=== PATIENT | female | born 1985 | race Caucasian/White ===

== ENCOUNTER 2017-01-01 22:16 | Emergency (ER) | payer SELFPAY ==
[2017-01-01 23:09] LABS: BASOPHILS 0.1 % (0-2); EOSINOPHILS 0.3 % (0-7); HEMATOCRIT 41.7 % (36.0-48.0); HEMOGLOBIN 14.1 g/dL (12-16); IMMATURE GRANULOCYTES 0.3 % (0-5); LYMPHOCYTES 10.2 % (15-50); MCH 29.6 pg (26.0-34.0); MCHC 33.8 g/dL (31.0-37.0); MCV 87.4 fL (80.0-100.0); MEAN PLATELET VOLUME 10.4 fL (7.4-10.4); MONOCYTES 10.1 % (2-11); PLATELET COUNT 267 10x3/uL (130-400); RBC 4.77 10x6/uL (4.00-5.40); RDW 13.8 % (11.5-14.5); WBC 11.5 10x3/uL (4.8-10.8)
[2017-01-01 23:10] LABS: APPEARANCE HAZY (CLEAR); BILIRUBIN NEGATIVE (NEGATIVE); COLOR YELLOW (YELLOW); GLUCOSE NEGATIVE (NEGATIVE); KETONE SMALL mg/dL (NEGATIVE); LEUKOCYTE ESTERASE NEGATIVE (NEGATIVE); NITRITE NEGATIVE (NEGATIVE); PROTEIN NEGATIVE (NEGATIVE); SPECIFIC GRAVITY 1.015 (1.005-1.020); UROBILINOGEN NORMAL (NORMAL)
[2017-01-01 23:20] LABS: ALBUMIN 2.8 g/dL (3.4-5.0); ANION GAP 15.4 mmol/L (8-16); BILIRUBIN - TOTAL 0.24 mg/dL (0.2-1.3); CALCIUM 8.5 mg/dL (8.5-10.1); CARBON DIOXIDE 22.1 mmol/L (21.0-32.0); CREATININE - SERUM 1.5 mg/dL (0.6-1.3); POTASSIUM - SERUM 3.5 mmol/L (3.5-5.1); PROTEIN - SERUM 6.1 g/dL (6.4-8.2)
[2017-01-01 23:21] LABS: MAGNESIUM - SERUM 1.9 mg/dL (1.8-2.4)
== END 2017-01-02 00:04 | disposition home or self-care (01) ==
LOC: D.ER 22:16
PROVIDERS: Emergency Medicine
DX: R53.1 Weakness (principal); R11.10 Vomiting, unspecified; S37.009A Unspecified injury of unspecified kidney, initial encounter; F17.200 Nicotine dependence, unspecified, uncomplicated

== ENCOUNTER 2017-01-05 21:56 | Emergency (ER) | payer SELFPAY ==
[2017-01-05 23:00] LABS: BASOPHILS 0.3 % (0-2); EOSINOPHILS 0.6 % (0-7); HEMATOCRIT 36.3 % (36.0-48.0); HEMOGLOBIN 12.2 g/dL (12-16); IMMATURE GRANULOCYTES 0.3 % (0-5); LYMPHOCYTES 16.6 % (15-50); MCH 29.7 pg (26.0-34.0); MCHC 33.6 g/dL (31.0-37.0); MCV 88.3 fL (80.0-100.0); MEAN PLATELET VOLUME 10.3 fL (7.4-10.4); MONOCYTES 7.6 % (2-11); NEUTROPHILS 74.6 % (40-80); PLATELET COUNT 291 10x3/uL (130-400); RBC 4.11 10x6/uL (4.00-5.40); RDW 13.8 % (11.5-14.5); WBC 9.8 10x3/uL (4.8-10.8)
[2017-01-05 23:11] LABS: HCG SERUM NEGATIVE (NEGATIVE)
[2017-01-05 23:17] LABS: ALBUMIN 2.6 g/dL (3.4-5.0); ALKALINE PHOSPHATASE 80 U/L (46-116); ALT (SGPT) 23 U/L (10-68); BILIRUBIN - TOTAL 0.24 mg/dL (0.2-1.3); CALC OSMOLALITY 280 mosm/kg (275-300); CALCIUM 7.9 mg/dL (8.5-10.1); CARBON DIOXIDE 25.4 mmol/L (21.0-32.0); CHLORIDE - SERUM 107 mmol/L (98-107); CREATININE - SERUM 0.8 mg/dL (0.6-1.3); GLUCOSE 119 mg/dL (74-106); PROTEIN - SERUM 5.9 g/dL (6.4-8.2); SODIUM 142 mmol/L (136-145); UREA NITROGEN 4 mg/dL (7-18); eGFR NON AFRICAN AMERICAN 89 mL/min (90-120)
[2017-01-05 23:24] LABS: POTASSIUM - SERUM 2.8 mmol/L (3.5-5.1)
[2017-01-06 00:21] LABS: APPEARANCE CLEAR (CLEAR); COLOR YELLOW (YELLOW)
[2017-01-06 00:22] LABS: BILIRUBIN NEGATIVE (NEGATIVE); GLUCOSE NEGATIVE (NEGATIVE); KETONE NEGATIVE (NEGATIVE); LEUKOCYTE ESTERASE TRACE (NEGATIVE); NITRITE NEGATIVE (NEGATIVE); PROTEIN NEGATIVE (NEGATIVE); UROBILINOGEN NORMAL (NORMAL)
[2017-01-06 00:23] LABS: BACTERIA MODERATE /hpf (NONE SEEN); EPITHELIAL CELLS 0-5 /hpf (0-5); MUCUS <1+ /lpf (NONE SEEN); RED CELLS - URINE 0-5 /hpf (0-5); WHITE CELLS - URINE 0-5 /hpf (0-5)
== END 2017-01-06 02:33 | disposition home or self-care (01) ==
LOC: D.ER 21:56
PROVIDERS: Family Medicine
DX: E87.6 Hypokalemia (principal); N39.0 Urinary tract infection, site not specified

== ENCOUNTER 2017-07-06 21:43 | Emergency (ER) | payer SELFPAY ==
[2017-07-06 22:30] LABS: BASOPHILS 0.4 % (0-2); EOSINOPHILS 2.5 % (0-7); HEMATOCRIT 32.2 % (36.0-48.0); HEMOGLOBIN 10.7 g/dL (12-16); IMMATURE GRANULOCYTES 0.1 % (0-5); LYMPHOCYTES 17.9 % (15-50); MCHC 33.2 g/dL (31.0-37.0); MCV 87.3 fL (80.0-100.0); MEAN PLATELET VOLUME 9.6 fL (7.4-10.4); NEUTROPHILS 70.1 % (40-80); PLATELET COUNT 317 10x3/uL (130-400); RBC 3.69 10x6/uL (4.00-5.40); RDW 13.5 % (11.5-14.5); WBC 8.5 10x3/uL (4.8-10.8)
[2017-07-06 22:45] LABS: ALBUMIN 2.8 g/dL (3.4-5.0); ALKALINE PHOSPHATASE 64 U/L (46-116); ALT (SGPT) 19 U/L (10-68); BILIRUBIN - TOTAL 0.31 mg/dL (0.2-1.3); CALC OSMOLALITY 272 mosm/kg (275-300); CALCIUM 8.6 mg/dL (8.5-10.1); CHLORIDE - SERUM 103 mmol/L (98-107); CREATININE - SERUM 0.7 mg/dL (0.6-1.3); GLUCOSE 85 mg/dL (74-106); POTASSIUM - SERUM 3.4 mmol/L (3.5-5.1); PROTEIN - SERUM 6.3 g/dL (6.4-8.2); SODIUM 138 mmol/L (136-145); UREA NITROGEN 7 mg/dL (7-18); eGFR NON AFRICAN AMERICAN > 90 mL/min (90-120)
== END 2017-07-06 23:05 | disposition home or self-care (01) ==
LOC: D.ER 21:43
PROVIDERS: Physician Assistant Medical
DX: J06.9 Acute upper respiratory infection, unspecified (principal); F17.200 Nicotine dependence, unspecified, uncomplicated

== ENCOUNTER 2017-10-29 07:40 | Emergency (ER) | payer SELFPAY | END 2017-10-29 08:30 | disposition home or self-care (01) | LOC: D.ER 07:40 | DX: R51 Headache (principal); M54.2 Cervicalgia ==

== ENCOUNTER 2018-08-08 07:17 | Emergency (ER) | payer MEDICAID ==
[~2018-08-08] VITALS: Ht 160 cm; Wt 113.6 kg
[2018-08-08 07:27] VITALS: Ht 160 cm; Wt 113.6 kg
[2018-08-08] MEDS ORDERED: HYDROCODON-ACE1 EAC2 PO (08:35)
[2018-08-08 09:09] VITALS: BP 102/53
== END 2018-08-08 09:09 | disposition home or self-care (01) ==
LOC: D.ER 07:17
DX: S30.0XXA Contusion of lower back and pelvis, initial encounter (principal); W10.9XXA Fall (on) (from) unspecified stairs and steps, initial encounter; Y93.89 Activity, other specified; Y92.89 Other specified places as the place of occurrence of the external cause

== ENCOUNTER 2018-12-07 18:22 | Emergency (ER) | payer MEDICAID ==
[~2018-12-07] VITALS: Ht 160 cm; Wt 113.6 kg
[~2018-12-07 18:22] MED LIST: HYDROCODON-ACE1 EAC2 PO
[2018-12-07 18:27] VITALS: Ht 160 cm; Wt 113.6 kg
[2018-12-07] MEDS ORDERED: SULFAMETHOXAZOL1 TA3 PO (20:31)
[2018-12-07] MEDS ORDERED: KEFLEX500 MG PO (20:31)
[2018-12-07 20:43] VITALS: BP 136/74
== END 2018-12-07 20:44 | disposition home or self-care (01) ==
LOC: D.ER 18:22
DX: S80.862A Insect bite (nonvenomous), left lower leg, initial encounter (principal); W57.XXXA Bitten or stung by nonvenomous insect and other nonvenomous arthropods, initial encounter; Y93.89 Activity, other specified; Y92.89 Other specified places as the place of occurrence of the external cause; L08.89 Other specified local infections of the skin and subcutaneous tissue

== ENCOUNTER 2019-04-04 07:26 | Inpatient (IN) | payer MEDICAID ==
[~2019-04-04] VITALS: Ht 160 cm; Wt 106.6 kg
[~2019-04-04 07:26] MED LIST changes: +KEFLEX500 MG PO; +SULFAMETHOXAZOL1 TA3 PO
[2019-04-04 07:53] LABS: BASOPHILS 0.1 % (0-2); EOSINOPHILS 1.3 % (0-7); HEMATOCRIT 36.8 % (36.0-48.0); HEMOGLOBIN 12.1 g/dL (12-16); IMMATURE GRANULOCYTES 0.3 % (0-5); LYMPHOCYTES 10.4 % (15-50); MCH 29.2 pg (26.0-34.0); MCHC 32.9 g/dL (31.0-37.0); MCV 88.9 fL (80.0-100.0); MEAN PLATELET VOLUME 9.9 fL (7.4-10.4); MONOCYTES 5.4 % (2-11); NEUTROPHILS 82.5 % (40-80); PLATELET COUNT 345 10x3/uL (130-400); RBC 4.14 10x6/uL (4.00-5.40); RDW 14.4 % (11.5-14.5); WBC 13.8 10x3/uL (4.8-10.8)
[2019-04-04 08:04] LABS: APPEARANCE CLEAR (CLEAR); BILIRUBIN NEGATIVE (NEGATIVE); COLOR YELLOW (YELLOW); GLUCOSE NEGATIVE (NEGATIVE); KETONE NEGATIVE (NEGATIVE); NITRITE NEGATIVE (NEGATIVE); PROTEIN NEGATIVE (NEGATIVE); UROBILINOGEN NORMAL (NORMAL)
[2019-04-04 08:10] LABS: ALBUMIN 3.2 g/dL (3.4-5.0); ALKALINE PHOSPHATASE 79 U/L (46-116); ALT (SGPT) 16 U/L (10-68); BILIRUBIN - TOTAL 0.15 mg/dL (0.2-1.3); CALC OSMOLALITY 280 mosm/kg (275-300); CALCIUM 8.8 mg/dL (8.5-10.1); CHLORIDE - SERUM 106 mmol/L (98-107); CREATININE - SERUM 0.7 mg/dL (0.6-1.3); GLUCOSE 126 mg/dL (74-106); PROTEIN - SERUM 7.2 g/dL (6.4-8.2); SODIUM 140 mmol/L (136-145); UREA NITROGEN 12 mg/dL (7-18); eGFR NON AFRICAN AMERICAN > 90 mL/min (90-120)
[2019-04-04 08:13] LABS: AMYLASE - SERUM 37 U/L (25-115); LIPASE 105 U/L (73-393); TROPONIN-I < 0.017 ng/mL (0.000-0.060)
[2019-04-04 10:55] VITALS: BP 170/80
[2019-04-04 12:35] VITALS: BP 160/80
[2019-04-04 13:10] VITALS: BP 155/101
[2019-04-04 17:25] VITALS: BP 155/101; BMI 41.7
[2019-04-04 17:27] LABS: HCG URINE NEGATIVE (NEGATIVE)
[2019-04-04 21:13] VITALS: BP 134/75
[2019-04-05] VITALS (9 sets, daily range): BP systolic 95–126; BP diastolic 45–79; Ht 160 cm; Wt 106.6 kg
[2019-04-05 06:23] LABS: ALBUMIN 2.7 g/dL (3.4-5.0); ALKALINE PHOSPHATASE 75 U/L (46-116); AMYLASE - SERUM 25 U/L (25-115); BILIRUBIN - TOTAL 0.28 mg/dL (0.2-1.3); CALC OSMOLALITY 277 mosm/kg (275-300); CALCIUM 8.3 mg/dL (8.5-10.1); CHLORIDE - SERUM 106 mmol/L (98-107); CREATININE - SERUM 0.8 mg/dL (0.6-1.3); GLUCOSE 85 mg/dL (74-106); LIPASE 58 U/L (73-393); POTASSIUM - SERUM 3.4 mmol/L (3.5-5.1); PROTEIN - SERUM 6.4 g/dL (6.4-8.2); SODIUM 141 mmol/L (136-145); UREA NITROGEN 6 mg/dL (7-18); eGFR NON AFRICAN AMERICAN 88 mL/min (90-120)
[2019-04-05 06:24] LABS: ALT (SGPT) 30 U/L (10-68)
[2019-04-05 08:32] LABS: BASOPHILS 0.2 % (0-2); EOSINOPHILS 1.3 % (0-7); HEMATOCRIT 33.6 % (36.0-48.0); HEMOGLOBIN 10.8 g/dL (12-16); IMMATURE GRANULOCYTES 0.2 % (0-5); MCH 29.2 pg (26.0-34.0); MCHC 32.1 g/dL (31.0-37.0); MCV 90.8 fL (80.0-100.0); MEAN PLATELET VOLUME 10.2 fL (7.4-10.4); MONOCYTES 8.7 % (2-11); NEUTROPHILS 62.6 % (40-80); PLATELET COUNT 299 10x3/uL (130-400); RDW 14.7 % (11.5-14.5); WBC 8.3 10x3/uL (4.8-10.8)
[2019-04-05] MEDS ORDERED: HYDROCODON-ACE1 EAC7 PO (14:13)
--- NOTE | 2019-04-05 15:51 | MORECARE ---
CASE MANAGEMENT DISCHARGE SUMMARY PATIENT: KETTY OROPEZA UNIT: [id number] ADM DATE: 04/04/19 AGE: 33 : 87 SEX: F ROOM/BED: D.2233 AUTHOR: GURDEEP GRIMALDO PHYSICIAN: REFERRING PHYSICIAN: MANNY CHERY MD DATE OF SERVICE: 04/05/19 Discharge Plan Patient Name: KETTY OROPEZA Facility: [facility]:[place] : 1985 Planned Disposition: Home Anticipated Discharge Date: 04/05/19 Discharge Date: Expected LOS: 1 Initial Reviewer: [email or web address] Initial Review Date: 04/05/2019 Generated: 04/05/19 4:50 pm Patient Name: KETTY OROPEZA Page 95082 at 1551 All edits/amendments must be made on the electronic document DICTATION DATE: 04/05/191549 POLYGRAPH TECHNICIAN: SUNG 04/05/191549 RPT#: [id number] DC DATE: STATUS: ADM IN [facility] [address] [place] [address] END OF REPORT
--- NOTE | 2019-04-05 16:03 | MORECARE ---
CASE MANAGEMENT DISCHARGE SUMMARY PATIENT: KETTY RENO UNIT: [id number] ADM DATE: 04/04/19 AGE: 33 : 86 SEX: F ROOM/BED: D.2233 AUTHOR: DILLANDOC PHYSICIAN: REFERRING PHYSICIAN: MANNY CHERY MD DATE OF SERVICE: 04/05/19 Discharge Plan Patient Name: KETTY RENO Facility: [facility]:[place] : 1985 Planned Disposition: Home Anticipated Discharge Date: 04/05/19 Discharge Date: Expected LOS: 1 Initial Reviewer: [email or web address] Initial Review Date: 04/05/2019 Generated: 04/05/19 5:02 pm Comments DCP- Discharge Planning Updated by [email or web address]: Maya Martins on 04/05/19 2:[address] Patient Name: KETTY RENO Admission Status: ER Accout number: [id number] Admission Date: 04-04-2019 : 1985 Admission Diagnosis: Attending: MANNY CHERY Current LOS: 1 Anticipated DC Date: 04-05-2019 Planned Disposition: Home Primary Insurance: MEDICAID [place] Discharge Planning Comments: CM met with patient to complete initial dc planning assessment. CM educated patient on the CM role and verbal consent given by patient to complete assessment. Patient lives at home with her aunt. At discharge patient states she will be going to stay with her mom for about a week and feels this is a safe discharge. States her mom will take her home. CM discussed availability of home health, rehab services, and medical equipment. Patient denied known discharge needs at this time. CM will continue to follow and will assist as needed with dc plans/needs. Comb Tender: Maya Martins DCPIA - Discharge Planning Initial Assessment Updated by [email or web address]: Maya Martins on 04/05/19 3:50 pm * Is the patient Alert and Oriented? Yes * How many steps to enter\exit or inside your home? 0/0 * PCP Dr. Rausch * Pharmacy [facility] on [address] * Preadmission Environment Home with Family * ADLs Independent * Equipment None * List name and contact numbers for known caregivers / representatives who currently or will assist patient after discharge: Telly Reno - mother - [phone] * Verbal permission to speak to the caregivers and representatives has been obtained from the patient. Yes * Community resources currently utilized None * Additional services required to return to the preadmission environment? No * Can the patient safely return to the preadmission environment? Yes * Has this patient been hospitalized within the prior 30 days at any hospital? No Last DP export: 04/05/19 2:51 Patient Name: KETTY RENO Page 41832 at 1603 All edits/amendments must be made on the electronic document DICTATION DATE: 04/05/191601 FEATHERER: SUNG 04/05/191601 RPT#: [id number] [place] DATE: STATUS: ADM IN [facility] [address] [place] [address] END OF REPORT
[2019-04-06 01:26] VITALS: BP 125/65
[2019-04-06 04:41] VITALS: BP 134/60
[2019-04-06 06:33] LABS: BASOPHILS 0.1 % (0-2); EOSINOPHILS 0 % (0-7); HEMOGLOBIN 10.3 g/dL (12-16); IMMATURE GRANULOCYTES 0.2 % (0-5); LYMPHOCYTES 7.6 % (15-50); MCH 29.2 pg (26.0-34.0); MCHC 32.2 g/dL (31.0-37.0); MCV 90.7 fL (80.0-100.0); MEAN PLATELET VOLUME 10.6 fL (7.4-10.4); MONOCYTES 7.6 % (2-11); NEUTROPHILS 84.5 % (40-80); PLATELET COUNT 309 10x3/uL (130-400); RBC 3.53 10x6/uL (4.00-5.40); RDW 14.8 % (11.5-14.5)
[2019-04-06 06:34] LABS: WBC 14.4 10x3/uL (4.8-10.8)
[2019-04-06 07:14] LABS: ALBUMIN 2.8 g/dL (3.4-5.0); ALKALINE PHOSPHATASE 70 U/L (46-116); CALC OSMOLALITY 277 mosm/kg (275-300); CALCIUM 8.4 mg/dL (8.5-10.1); CARBON DIOXIDE 25.7 mmol/L (21.0-32.0); CHLORIDE - SERUM 105 mmol/L (98-107); CREATININE - SERUM 0.9 mg/dL (0.6-1.3); GLUCOSE 127 mg/dL (74-106); PROTEIN - SERUM 6.4 g/dL (6.4-8.2); SODIUM 139 mmol/L (136-145); UREA NITROGEN 7 mg/dL (7-18); eGFR NON AFRICAN AMERICAN 77 mL/min (90-120)
[2019-04-06 07:21] LABS: ALT (SGPT) 83 U/L (10-68); POTASSIUM - SERUM 4.2 mmol/L (3.5-5.1)
[2019-04-06 08:43] VITALS: BP 127/68
--- NOTE | 2019-04-06 11:44 | MORECARE ---
CASE MANAGEMENT DISCHARGE SUMMARY PATIENT: KETTY RENO UNIT: [id number] ADM DATE: 04/04/19 AGE: 33 : 86 SEX: F ROOM/BED: D.2233 AUTHOR: GURDEEP GRIMALDO PHYSICIAN: REFERRING PHYSICIAN: MANNY CHERY MD DATE OF SERVICE: 04/06/19 Discharge Plan Patient Name: KETTY RENO Facility: [facility]:[place] : 1985 Planned Disposition: Home Anticipated Discharge Date: 04/05/19 Discharge Date: Expected LOS: 1 Initial Reviewer: [email or web address] Initial Review Date: 04/05/2019 Generated: 04/06/19 12:43 pm Comments DCP- Discharge Planning Updated by [email or web address]: Maya Martins on 04/06/19 10:[address] Patient Name: KETTY RNEO Encounter No: [id number] : 1985 Primary Insurance: MEDICAID [place] Anticipated DC Date: 04-05-2019 Planned Disposition: Home External Planned Provider: : DCP follow-up note: Patient and family in agreement with discharge plan. No changes to plan. Case management will follow and assist as needed. Maya Martins DCP- Discharge Planning Updated by [email or web address]: Maya Martins on 04/05/19 2:[address] Patient Name: KETTY RENO Admission Status: ER Accout number: [id number] Admission Date: 04-04-2019 : 1985 Admission Diagnosis: Attending: MANNY CHERY Current LOS: 1 Anticipated DC Date: 04-05-2019 Planned Disposition: Home Primary Insurance: MEDICAID [place] Discharge Planning Comments: CM met with patient to complete initial dc planning assessment. CM educated patient on the CM role and verbal consent given by patient to complete assessment. Patient lives at home with her aunt. At discharge patient states she will be going to stay with her mom for about a week and feels this is a safe discharge. States her mom will take her home. CM discussed availability of home health, rehab services, and medical equipment. Patient denied known discharge needs at this time. CM will continue to follow and will assist as needed with dc plans/needs. Geospatial Analyst: Maya Martins DCPIA - Discharge Planning Initial Assessment Updated by [email or web address]: Maya Martins on 04/05/19 3:50 pm * Is the patient Alert and Oriented? Yes * How many steps to enter\exit or inside your home? 0/0 * PCP Dr. Rausch * Pharmacy [facility] on [address] * Preadmission Environment Home with Family * ADLs Independent * Equipment None * List name and contact numbers for known caregivers / representatives who currently or will assist patient after discharge: Telly Reno - mother - [phone] * Verbal permission to speak to the caregivers and representatives has been obtained from the patient. Yes * Community resources currently utilized None * Additional services required to return to the preadmission environment? No * Can the patient safely return to the preadmission environment? Yes * Has this patient been hospitalized within the prior 30 days at any hospital? No Last DP export: 04/05/19 3:03 Patient Name: KETTY RENO Page 41750 at 1144 All edits/amendments must be made on the electronic document DICTATION DATE: 04/06/19 1143 SKI PATROL: SUNG 04/06/19 1143 RPT#: [id number] DC DATE: STATUS: ADM IN [facility] [address] [place] [address] END OF REPORT
--- NOTE | 2019-04-06 16:50 | MORECARE ---
CASE MANAGEMENT DISCHARGE SUMMARY PATIENT: KETTY RENO UNIT: [id number] ADM DATE: 04/04/19 AGE: 33 : 87 SEX: F ROOM/BED: D.2233 AUTHOR: GURDEEP GRIMALDO PHYSICIAN: REFERRING PHYSICIAN: MANNY CHERY MD DATE OF SERVICE: 04/06/19 Discharge Plan Patient Name: KETTY RENO Facility: [facility]:[place] : 1985 Planned Disposition: Home Anticipated Discharge Date: 04/05/19 Discharge Date: 04/06/2019 Expected LOS: 1 Initial Reviewer: [email or web address] Initial Review Date: 04/05/2019 Generated: 04/06/19 5:49 pm Comments DCP- Discharge Planning Updated by [email or web address]: Maya Martins on 04/06/19 10:[address] Patient Name: KETTY RENO Encounter No: [id number] : 1985 Primary Insurance: MEDICAID [place] Anticipated DC Date: 04-05-2019 Planned Disposition: Home External Planned Provider: : DCP follow-up note: Patient and family in agreement with discharge plan. No changes to plan. Case management will follow and assist as needed. Maya Martins DCP- Discharge Planning Updated by [email or web address]: Maya Martins on 04/05/19 2:[address] Patient Name: KETTY RENO Admission Status: ER Accout number: [id number] Admission Date: 04-04-2019 : 1985 Admission Diagnosis: Attending: MANNY CHERY Current LOS: 1 Anticipated DC Date: 04-05-2019 Planned Disposition: Home Primary Insurance: MEDICAID [place] Discharge Planning Comments: CM met with patient to complete initial dc planning assessment. CM educated patient on the CM role and verbal consent given by patient to complete assessment. Patient lives at home with her aunt. At discharge patient states she will be going to stay with her mom for about a week and feels this is a safe discharge. States her mom will take her home. CM discussed availability of home health, rehab services, and medical equipment. Patient denied known discharge needs at this time. CM will continue to follow and will assist as needed with dc plans/needs. Life Enrichment Specialist: Maya Martins DCPIA - Discharge Planning Initial Assessment Updated by [email or web address]: Maya Eliezer on 04/05/19 3:50 pm * Is the patient Alert and Oriented? Yes * How many steps to enter\exit or inside your home? 0/0 * PCP Dr. Rausch * Pharmacy [facility] on [address] * Preadmission Environment Home with Family * ADLs Independent * Equipment None * List name and contact numbers for known caregivers / representatives who currently or will assist patient after discharge: Telly Reno - mother - [phone] * Verbal permission to speak to the caregivers and representatives has been obtained from the patient. Yes * Community resources currently utilized None * Additional services required to return to the preadmission environment? No * Can the patient safely return to the preadmission environment? Yes * Has this patient been hospitalized within the prior 30 days at any hospital? No Last DP export: 04/06/19 10:44 Patient Name: KETTY RENO Page 93891 at 1650 All edits/amendments must be made on the electronic document DICTATION DATE: 04/06/191648 EQUIPMENT TECHNICIAN: SUNG 04/06/191648 RPT#: [id number] DC DATE:04/06/19 STATUS: DIS IN [facility] [address] [place] [address] END OF REPORT
== END 2019-04-06 12:59 | disposition home or self-care (01) | DRG 418 ==
LOC: D.ER 07:26 → D.MS 10:59
PROVIDERS: Family Medicine; Surgery; ADMIT Emergency Medicine; ATTEND Emergency Medicine
PROC: BF101ZZ Fluoroscopy of Bile Ducts using Low Osmolar Contrast (ICD-10-PCS; 2019-04-05)
PROC: 0FT44ZZ Resection of Gallbladder, Percutaneous Endoscopic Approach (ICD-10-PCS; principal; 2019-04-05 15:00)
DX: K80.20 Calculus of gallbladder without cholecystitis without obstruction (principal); Z68.41 Body mass index [BMI] 40.0-44.9, adult; R19.7 Diarrhea, unspecified; E86.0 Dehydration; E66.9 Obesity, unspecified; K80.00 Calculus of gallbladder with acute cholecystitis without obstruction

== ENCOUNTER 2019-04-11 06:59 | Inpatient (IN) | payer MEDICAID ==
[~2019-04-11] VITALS: Ht 160 cm; Wt 109.1 kg
[~2019-04-11 06:59] MED LIST changes: +HYDROCODON-ACE1 EAC7 PO
[2019-04-11 07:37] LABS: CALC OSMOLALITY 271 mosm/kg (275-300); CALCIUM 9.3 mg/dL (8.5-10.1); CARBON DIOXIDE 24.6 mmol/L (21.0-32.0); CHLORIDE - SERUM 100 mmol/L (98-107); CREATININE - SERUM 0.6 mg/dL (0.6-1.3); GLUCOSE 149 mg/dL (74-106); POTASSIUM - SERUM 3.7 mmol/L (3.5-5.1); SODIUM 135 mmol/L (136-145); UREA NITROGEN 10 mg/dL (7-18); eGFR NON AFRICAN AMERICAN > 90 mL/min (90-120)
[2019-04-11 07:40] LABS: ALT (SGPT) 43 U/L (10-68)
[2019-04-11 07:44] LABS: ALBUMIN 3.8 g/dL (3.4-5.0); ALKALINE PHOSPHATASE 94 U/L (46-116); ALT (SGPT) 44 U/L (10-68); BILIRUBIN - TOTAL 0.56 mg/dL (0.2-1.3); CHOL - HDL RATIO 3.8 ratio (2.3-4.1); CHOLESTEROL, TOTAL 209 mg/dL (0-200); HDL CHOLESTEROL 55 mg/dL (32-96); LDL CHOLESTEROL 132 mg/dL (0-100); LDL-HDL RATIO 2.4 ratio (1.5-3.5); PROTEIN - SERUM 7.8 g/dL (6.4-8.2); TRIGLYCERIDE 112 mg/dL (30-200)
[2019-04-11 07:48] LABS: HCG URINE NEGATIVE (NEGATIVE); HEMATOCRIT 36.8 % (36.0-48.0); HEMOGLOBIN 12.4 g/dL (12-16); MCH 29.8 pg (26.0-34.0); MCHC 33.7 g/dL (31.0-37.0); MCV 88.5 fL (80.0-100.0); MEAN PLATELET VOLUME 10.1 fL (7.4-10.4); PLATELET COUNT 411 10x3/uL (130-400); RBC 4.16 10x6/uL (4.00-5.40); RDW 14.2 % (11.5-14.5); WBC 21.1 10x3/uL (4.8-10.8)
[2019-04-11 07:56] LABS: APPEARANCE HAZY (CLEAR); COLOR YELLOW (YELLOW); NITRITE NEGATIVE (NEGATIVE); PROTEIN NEGATIVE (NEGATIVE); SPECIFIC GRAVITY 1.005 (1.005-1.020)
[2019-04-11 07:57] LABS: BACTERIA MANY /hpf (NEGATIVE); BILIRUBIN NEGATIVE (NEGATIVE); EPITHELIAL CELLS 0-5 /hpf (0-5); GLUCOSE NEGATIVE (NEGATIVE); KETONE LARGE mg/dL (NEGATIVE); MUCUS <1+ /lpf (NONE SEEN); RED CELLS - URINE 0-5 /hpf (0-5); UROBILINOGEN NORMAL (NORMAL); WHITE CELLS - URINE 0-5 /hpf (NEGATIVE)
--- NOTE | 2019-04-11 08:23 | NUR ---
PT RERORTS NAUSEA IS BETTER BUT HER ABD STILL HURTS. PT STATES IT FEELS LIKE A BIG BALL ROLLING ARAOUND HER STOMACH.
--- NOTE | 2019-04-11 08:50 | NUR ---
PT GONE TO CT
--- NOTE | 2019-04-11 09:14 | NUR ---
PT RETURNED FROM CT
[2019-04-11 10:52] VITALS: BP 148/98; BMI 42.6
--- NOTE | 2019-04-11 11:38 | NUR ---
PATIENT RECIEVED FROM ER WITH NAUSEA AND VOMITING SINCE LAST PM. ABDOMINAL ABCESS. PATIENT IS POST OP LAP KARO LAST WEEK. STERI-STRIPS ARE INTACT TO LAP SITES. ORIENTED PATIENT TO ROOM WITH CL IN REACH
[2019-04-11 12:01] LABS: LYMPHOCYTES 10 % (15-50); MONOCYTES 11 % (2-11); NEUTROPHILS 74 % (40-80); PLATELET ESTIMATE INCREASED
[2019-04-11 12:02] LABS: ROULEAUX 1+
[2019-04-11 12:34] VITALS: BP 140/82
[2019-04-11 14:39] LABS: APTT 33.3 SECONDS (22.8-39.4); INR 1.12 (0.85-1.17); PROTIME 13.9 SECONDS (11.6-15.0)
--- NOTE | 2019-04-11 15:42 | NUR ---
PATIENT TAKEN TO IR VIA BED FOR ABSCESS DRAIN PLACEMENT
[2019-04-11 16:58] VITALS: Ht 160 cm; Wt 109.1 kg
[2019-04-11 17:19] VITALS: BP 145/80
[2019-04-11 20:34] VITALS: BP 154/83
[2019-04-12 01:19] VITALS: BP 137/75
[2019-04-12 05:03] VITALS: BP 118/73
--- NOTE | 2019-04-12 05:29 | NUR ---
1930)REC'D WALKING ROUNDS CHGE OF SHIFT IN BED.DENIES NAUSEA AT PRESENT TIME STATES PASSING LOT OF FLATUS WILL CONTINUE TO MONITOR FOR ANY CHGES AND FOLLOW CURRENT PLAN OF CARE.
[2019-04-12 06:30] LABS: BASOPHILS 0.1 % (0-2); EOSINOPHILS 0.2 % (0-7); HEMATOCRIT 32.9 % (36.0-48.0); HEMOGLOBIN 10.9 g/dL (12-16); IMMATURE GRANULOCYTES 0.4 % (0-5); LYMPHOCYTES 8.5 % (15-50); MCH 29.4 pg (26.0-34.0); MCHC 33.1 g/dL (31.0-37.0); MCV 88.7 fL (80.0-100.0); MEAN PLATELET VOLUME 10.1 fL (7.4-10.4); MONOCYTES 9.6 % (2-11); NEUTROPHILS 81.2 % (40-80); PLATELET COUNT 355 10x3/uL (130-400); RBC 3.71 10x6/uL (4.00-5.40); RDW 14.4 % (11.5-14.5); WBC 16.4 10x3/uL (4.8-10.8)
--- NOTE | 2019-04-12 06:38 | NUR ---
I have reviewed this patient and I concur with the Shift Assessment completed by the Licensed Practical Nurse today this shift.
[2019-04-12 06:44] LABS: CALC OSMOLALITY 271 mosm/kg (275-300); CALCIUM 8.7 mg/dL (8.5-10.1); CARBON DIOXIDE 26.8 mmol/L (21.0-32.0); CHLORIDE - SERUM 101 mmol/L (98-107); CREATININE - SERUM 0.7 mg/dL (0.6-1.3); GLUCOSE 110 mg/dL (74-106); POTASSIUM - SERUM 3.3 mmol/L (3.5-5.1); SODIUM 136 mmol/L (136-145); UREA NITROGEN 9 mg/dL (7-18); eGFR NON AFRICAN AMERICAN > 90 mL/min (90-120)
--- NOTE | 2019-04-12 07:00 | NUR ---
PATIENT RECIEVED FROM PREVIOUS SHIFT RESTING IN BED, REPORTS NAUSEA RETURNING DURING THE NIGHT. ENCOURAGED PATIENT TO ONLY TAKE ICE CHIPS CLEAR LIQUIDS UNTIL NAUSEA IS IMPROVED.
[2019-04-12 09:21] VITALS: BP 130/63
[2019-04-12 12:40] VITALS: BP 115/69
--- NOTE | 2019-04-12 15:07 | NUR ---
PATIENT REQUEST MORPHINE FOR ABD PAIN OF 8 AND NAUSEA MEDICAION, NO VOMITING AT THIS TIME, ONLY NAUSEA
[2019-04-12 16:56] VITALS: BP 141/82
[2019-04-12 20:39] VITALS: BP 127/72
--- NOTE | 2019-04-12 23:21 | NUR ---
PATIENT IS ALERT AND ORENTED X4. ABLE TO VOICE NEEDS AND WANTS TO STAFF. CALL LIGHT AND WATER IN REACH. iv TO RIGHT AC WITH NS AT 75, PATIENT WITH NO REDNESS AT SITE. dRESSING TO ABD MIDLINE CDI LAP SITES WITH NO DRANAGE NOTED. BED LOW.
[2019-04-13 01:22] VITALS: BP 130/71
[2019-04-13 05:03] VITALS: BP 121/70
--- NOTE | 2019-04-13 07:41 | NUR ---
PT IS RESTING IN BED WITH EYES CLOSED. RESPIRATIONS ARE EVEN AND UNLABORED. PT REPORTS NAUSEA AND COUGH. WILL ADDRESS NAUSEA. SEE EMAR. PT IS AAO X 4. PT REPORTS PAIN 8/10 TO ABDOMINAL AREA. WILL ADDRESS. SEE EMAR. BS ACITVE X 4. PT REPORTS PASSING GAS BUT DENIES BM. DRESSING TO ABDOMEN IS CDI. BED IS IN THE LOWEST POSITION. CALL LIGHT AND BEDSIDE TABLE ARE WITHIN REACH. SIDE RAILS X 2. PT DENIES FURTHER NEEDS. WILL CONT TO MONITOR.
[2019-04-13 08:39] LABS: CALC OSMOLALITY 272 mosm/kg (275-300); CALCIUM 8.4 mg/dL (8.5-10.1); CARBON DIOXIDE 27.3 mmol/L (21.0-32.0); CHLORIDE - SERUM 104 mmol/L (98-107); CREATININE - SERUM 0.6 mg/dL (0.6-1.3); GLUCOSE 93 mg/dL (74-106); POTASSIUM - SERUM 3.5 mmol/L (3.5-5.1); SODIUM 137 mmol/L (136-145); UREA NITROGEN 9 mg/dL (7-18); eGFR NON AFRICAN AMERICAN > 90 mL/min (90-120)
[2019-04-13 08:44] LABS: BASOPHILS 0.2 % (0-2); EOSINOPHILS 1.5 % (0-7); HEMATOCRIT 28.2 % (36.0-48.0); HEMOGLOBIN 9.2 g/dL (12-16); IMMATURE GRANULOCYTES 0.2 % (0-5); MCH 29.1 pg (26.0-34.0); MCHC 32.6 g/dL (31.0-37.0); MCV 89.2 fL (80.0-100.0); MEAN PLATELET VOLUME 9.9 fL (7.4-10.4); MONOCYTES 9.6 % (2-11); NEUTROPHILS 78.5 % (40-80); PLATELET COUNT 324 10x3/uL (130-400); RBC 3.16 10x6/uL (4.00-5.40); RDW 14.3 % (11.5-14.5); WBC 12.3 10x3/uL (4.8-10.8)
[2019-04-13 09:21] VITALS: BP 120/69
[2019-04-13] MEDS ORDERED: PHENERGAN25 M1 PO (09:37)
[2019-04-13] MEDS ORDERED: LEVOFLOXACIN500 MG PO (09:39)
--- NOTE | 2019-04-13 11:08 | MORECARE ---
CASE MANAGEMENT DISCHARGE SUMMARY PATIENT: KETTY OROPEZA UNIT: [id number] ADM DATE: 04/11/19 AGE: 33 : [birth year] SEX: F ROOM/BED: D.2238 AUTHOR: GURDEEP GRIMALDO PHYSICIAN: REFERRING PHYSICIAN: FÉLIX JACKSON MD DATE OF SERVICE: 04/13/19 Discharge Plan Patient Name: KETTY OROPEZA [facility] [facility] 1985 Planned Disposition: Home Anticipated Discharge Date: 04/13/19 Discharge Date: Expected LOS: 2 Initial Reviewer: [email or web address] Initial Review Date: 04/13/2019 Generated: 04/13/19 12:08 pm Patient Name: KETTY OROPEZA Page 42921 at 1108 All edits/amendments must be made on the electronic document DICTATION DATE: 04/13/191107 DIGESTER OPERATOR: SUNG 04/13/191107 RPT#: [id number] DC DATE: STATUS: ADM IN [facility] [address] [place] [address] END OF REPORT
--- NOTE | 2019-04-13 11:17 | MORECARE ---
CASE MANAGEMENT DISCHARGE SUMMARY PATIENT: KETTY RENO UNIT: [id number] ADM DATE: 04/11/19 AGE: 33 : [birth year] SEX: F ROOM/BED: D.2238 AUTHOR: DILLAN,DOC PHYSICIAN: REFERRING PHYSICIAN: FÉLIX JACKSON MD DATE OF SERVICE: 04/13/19 Discharge Plan Patient Name: KETTY RENO Facility: [facility]:[place] : 1985 Planned Disposition: Home Anticipated Discharge Date: 04/13/19 Discharge Date: Expected LOS: 2 Initial Reviewer: [email or web address] Initial Review Date: 04/13/2019 Generated: 04/13/19 12:17 pm Comments DCP- Discharge Planning Updated by [email or web address]: Maya Martins on 04/13/19 10:[address] Patient Name: KETTY RENO Admission Status: ER Accout number: [id number] Admission Date: 04-11-2019 : 1985 Admission Diagnosis: Attending: FÉLIX JACKSON Current LOS: 2 Anticipated DC Date: 04-13-2019 Planned Disposition: Home Primary Insurance: MEDICAID [place] Discharge Planning Comments: CM met with patient to complete initial dc planning assessment. CM educated patient on the CM role and verbal consent given by patient to complete assessment. Patient lives at home with her mother. At discharge patient plans to return and feels this is a safe discharge. CM discussed availability of home health, rehab services, and medical equipment. Patient denied known discharge needs at this time. Discharging home today, states her mother will pick her up after work at 2. CM will continue to follow and will assist as needed with dc plans/needs. Sales Operations Manager: Maya Martins DCPIA - Discharge Planning Initial Assessment Updated by [email or web address]: Maya Martins on 04/13/19 11:09 am * Is the patient Alert and Oriented? Yes * How many steps to enter\exit or inside your home? 0/0 * PCP Dr. Rausch * Pharmacy [facility] on [address] * Preadmission Environment Home with Family * ADLs Independent * Equipment None * List name and contact numbers for known caregivers / representatives who currently or will assist patient after discharge: Telly Reno - mother - [phone] * Verbal permission to speak to the caregivers and representatives has been obtained from the patient. Yes * Community resources currently utilized None * Additional services required to return to the preadmission environment? No * Can the patient safely return to the preadmission environment? Yes * Has this patient been hospitalized within the prior 30 days at any hospital? Yes Last DP export: 04/13/19 10:08 Patient Name: KETTY RENO Page 70392 at 1117 All edits/amendments must be made on the electronic document DICTATION DATE: 04/13/191116 MEDICAL RECORDS SECRETARY: SUNG 04/13/191116 RPT#: [id number] [place] DATE: STATUS: ADM IN [facility] [address] [place] [address] END OF REPORT
--- NOTE | 2019-04-13 13:16 | NUR ---
ALL DISCHARGE PAPERS COVERED. ALL QUESTIONS ANSWERED. ALL DISCHARGE PAPERS SIGNED. PT DENIES FURTHER QUESTIONS/CONCERNS AT THIS TIME. PT TO NOTIFY NURSE WHEN TRANSPORTATION HAS ARRIVED.
--- NOTE | 2019-04-13 13:59 | NUR ---
PIV REMOVED WITH CATHETER TIP INTACT. DRESSING APPLIED. PT DENIES FURTHER QUESTIONS/NEEDS/CONCERNS.
--- NOTE | 2019-04-13 14:02 | NUR ---
PT TRANSPORTED FROM ROOM VIA WHEELCHAIR ESCORTED BY HOSPITAL VOLUNTEER STAFF. PT DENIES QUESTIONS/CONCERNS/NEEDS. PT THANKS ME FOR CARE GIVEN.
--- NOTE | 2019-04-14 16:14 | MORECARE ---
CASE MANAGEMENT DISCHARGE SUMMARY PATIENT: KETTY RENO UNIT: [id number] ADM DATE: 04/11/19 AGE: 33 : 87 SEX: F ROOM/BED: D.2238 AUTHOR: DILLAN,DOC PHYSICIAN: REFERRING PHYSICIAN: FÉLIX JACKSON MD DATE OF SERVICE: 04/14/19 Discharge Plan Patient Name: KETTY RENO Facility: [facility]:[place] : 1985 Planned Disposition: Home Anticipated Discharge Date: 04/13/19 Discharge Date: 04/13/2019 Expected LOS: 2 Initial Reviewer: [email or web address] Initial Review Date: 04/13/2019 Generated: 04/14/19 5:13 pm Comments DCP- Discharge Planning Updated by [email or web address]: Maya Martins on 04/13/19 10:[address] Patient Name: KETTY RENO Admission Status: ER Accout number: [id number] Admission Date: 04-11-2019 : 1985 Admission Diagnosis: Attending: FÉLIX JACKSON Current LOS: 2 Anticipated DC Date: 04-13-2019 Planned Disposition: Home Primary Insurance: MEDICAID [place] Discharge Planning Comments: CM met with patient to complete initial dc planning assessment. CM educated patient on the CM role and verbal consent given by patient to complete assessment. Patient lives at home with her mother. At discharge patient plans to return and feels this is a safe discharge. CM discussed availability of home health, rehab services, and medical equipment. Patient denied known discharge needs at this time. Discharging home today, states her mother will pick her up after work at 2. CM will continue to follow and will assist as needed with dc plans/needs. Ground Wood Supervisor: Maya Martins DCPIA - Discharge Planning Initial Assessment Updated by [email or web address]: Maya Martins on 04/13/19 11:09 am * Is the patient Alert and Oriented? Yes * How many steps to enter\exit or inside your home? 0/0 * PCP Dr. Rausch * Pharmacy [facility] on [address] * Preadmission Environment Home with Family * ADLs Independent * Equipment None * List name and contact numbers for known caregivers / representatives who currently or will assist patient after discharge: Telly Reno - mother - [phone] * Verbal permission to speak to the caregivers and representatives has been obtained from the patient. Yes * Community resources currently utilized None * Additional services required to return to the preadmission environment? No * Can the patient safely return to the preadmission environment? Yes * Has this patient been hospitalized within the prior 30 days at any hospital? Yes Last DP export: 04/13/19 10:17 Patient Name: KETTY RENO Page 57320 at 1614 All edits/amendments must be made on the electronic document DICTATION DATE: 04/14/191612 MINERALOGY TEACHER: SUNG 04/14/191612 RPT#: [id number] DC DATE:04/13/19 STATUS: DIS IN [facility] [address] [place] [address] END OF REPORT
== END 2019-04-13 14:03 | disposition home or self-care (01) | DRG 921 ==
LOC: D.ER 06:59 → D.MS 10:12
PROVIDERS: Family Medicine; Specialist; ADMIT Surgery; ATTEND Surgery
PROC: 0J983ZZ Drainage of Abdomen Subcutaneous Tissue and Fascia, Percutaneous Approach (ICD-10-PCS; principal; 2019-04-11 16:00)
DX: K91.870 Postprocedural hematoma of a digestive system organ or structure following a digestive system procedure (principal); D72.829 Elevated white blood cell count, unspecified; R10.84 Generalized abdominal pain

== ENCOUNTER 2019-04-15 10:00 | Inpatient (IN) | payer MEDICAID ==
[~2019-04-15] VITALS: Ht 160 cm; Wt 106.8 kg
[~2019-04-15 10:00] MED LIST changes: +LEVOFLOXACIN500 MG PO; +PHENERGAN25 M1 PO
--- NOTE | 2019-04-15 10:38 | NUR ---
URINE AND BLOOD SPECIMEN SENT WITH MANAGER TELECOM AT THIS TIME.
[2019-04-15 10:49] LABS: HEMATOCRIT 33.6 % (36.0-48.0); HEMOGLOBIN 11.2 g/dL (12-16); LYMPHOCYTES 11.4 % (15-50); MCH 28.7 pg (26.0-34.0); MCHC 33.3 g/dL (31.0-37.0); MCV 86.2 fL (80.0-100.0); MEAN PLATELET VOLUME 9.2 fL (7.4-10.4); PLATELET COUNT 425 10x3/uL (130-400); RDW 13.5 % (11.5-14.5); WBC 10.6 10x3/uL (4.8-10.8)
[2019-04-15 10:51] VITALS: BP 150/72
[2019-04-15 11:00] LABS: COLOR DY (YELLOW)
[2019-04-15 11:01] LABS: APPEARANCE CLEAR (CLEAR); BACTERIA MANY /hpf (NEGATIVE); BILIRUBIN NEGATIVE (NEGATIVE); EPITHELIAL CELLS 0-5 /hpf (0-5); GLUCOSE NEGATIVE (NEGATIVE); KETONE NEGATIVE (NEGATIVE); MUCUS >1+ /lpf (NONE SEEN); NITRITE NEGATIVE (NEGATIVE); PROTEIN NEGATIVE (NEGATIVE); SPECIFIC GRAVITY 1.015 (1.005-1.020); UROBILINOGEN NORMAL (NORMAL)
[2019-04-15 11:12] LABS: ALKALINE PHOSPHATASE 164 U/L (46-116); ALT (SGPT) 38 U/L (10-68); BILIRUBIN - TOTAL 0.46 mg/dL (0.2-1.3); CALC OSMOLALITY 270 mosm/kg (275-300); CALCIUM 9.2 mg/dL (8.5-10.1); CARBON DIOXIDE 29.5 mmol/L (21.0-32.0); CHLORIDE - SERUM 98 mmol/L (98-107); CREATININE - SERUM 0.7 mg/dL (0.6-1.3); GLUCOSE 110 mg/dL (74-106); LIPASE 73 U/L (73-393); PRO BNP 346 pg/mL (0-125); PROTEIN - SERUM 8.3 g/dL (6.4-8.2); SODIUM 136 mmol/L (136-145); UREA NITROGEN 6 mg/dL (7-18); eGFR NON AFRICAN AMERICAN > 90 mL/min (90-120)
[2019-04-15 11:13] LABS: POTASSIUM - SERUM 2.9 mmol/L (3.5-5.1)
--- NOTE | 2019-04-15 11:13 | NUR ---
K+ 2.9; EDP, HUERTA INFORMED AT THIS TIME.
[2019-04-15 11:16] LABS: UDS - AMPHET NEGATIVE QUAL (NEGATIVE); UDS - BARB NEGATIVE QUAL (NEGATIVE); UDS - BENZO NEGATIVE QUAL (NEGATIVE); UDS - COCAINE NEGATIVE QUAL (NEGATIVE); UDS - OPIATE POSITIVE QUAL (NEGATIVE); UDS - PCP NEGATIVE QUAL (NEGATIVE); UDS - THC NEGATIVE QUAL (NEGATIVE)
[2019-04-15 12:44] VITALS: BP 128/69
--- NOTE | 2019-04-15 13:10 | NUR ---
PT ARRIVED TO FLOOR FROM ER. CHILD AT BEDSIDE. VSS AND WNL. DENIES ANY NEEDS AT THIS TIME, WILL CONT TO FOLLOW POC
[2019-04-15 14:52] VITALS: BP 128/69; BMI 41.5
[2019-04-15 16:08] VITALS: BP 159/57
--- NOTE | 2019-04-15 17:04 | NUR ---
PT COMPLAINING OF NAUSEA AND IT IS TOO EARLY FOR ANY MORE ZOFRAN. APPLIED A COLD WASHCLOTH TO PT FOREHEAD. PT VERBALIZED THANKS. DENIES ANY FURTHER NEEDS AT THIS TIME. WILL CONT TO FOLLOW POC
--- NOTE | 2019-04-15 17:12 | NUR ---
PT ARRIVED TO FLOOR VIA WC. PT AMBULATE SELF TO BED. PT IS ON ROOM AIR AND IS ALERT AND ORIENTED. STARTED IVF THAT ARE ORDERED. LEFT AC 20G IV INFUSING NS AT 100ML/HR. HAT PLACED IN COMMODE FOR STOOL COLLECTION. EXPLAINED COLLECTION TO PT AND SHE VERBALIZED UNDERSTANDING. PT HAS NO FURTHER NEEDS AT THIS TIME. BED LOW. CL IN REACH.
--- NOTE | 2019-04-15 19:15 | NUR ---
PT CARE ASSUMED. BEDSIDE SHIFT REPORT COMPLETE. A&O X4, RR EVEN AND UNLABORED ON RA. NO S/S OF DISTRESS NOTED. PROVIDED BROTH PER REQUEST. NO FURTHER NEEDS EXPRESSED. SR X2, CALL LIGHT IN REACH. WILL CTM.
[2019-04-15 20:00] VITALS: BP 132/76
[2019-04-16] VITALS: BP 148/82
[2019-04-16 04:00] VITALS: BP 122/82
[2019-04-16 04:35] LABS: BASOPHILS 0.3 % (0-2); EOSINOPHILS 3.6 % (0-7); HEMATOCRIT 30.3 % (36.0-48.0); HEMOGLOBIN 9.8 g/dL (12-16); IMMATURE GRANULOCYTES 0.3 % (0-5); LYMPHOCYTES 13.9 % (15-50); MCH 28.8 pg (26.0-34.0); MCHC 32.3 g/dL (31.0-37.0); MEAN PLATELET VOLUME 9.4 fL (7.4-10.4); MONOCYTES 10.1 % (2-11); NEUTROPHILS 71.8 % (40-80); PLATELET COUNT 374 10x3/uL (130-400); RDW 13.9 % (11.5-14.5); WBC 9.2 10x3/uL (4.8-10.8)
[2019-04-16 04:42] LABS: MCV 89.1 fL (80.0-100.0)
[2019-04-16 05:02] LABS: ALBUMIN 2.5 g/dL (3.4-5.0); ALKALINE PHOSPHATASE 247 U/L (46-116); ALT (SGPT) 42 U/L (10-68); BILIRUBIN - TOTAL 0.36 mg/dL (0.2-1.3); CALC OSMOLALITY 272 mosm/kg (275-300); CARBON DIOXIDE 29.5 mmol/L (21.0-32.0); CHLORIDE - SERUM 103 mmol/L (98-107); CREATININE - SERUM 0.6 mg/dL (0.6-1.3); GLUCOSE 92 mg/dL (74-106); POTASSIUM - SERUM 3.6 mmol/L (3.5-5.1); PROTEIN - SERUM 6.7 g/dL (6.4-8.2); SODIUM 138 mmol/L (136-145); UREA NITROGEN 5 mg/dL (7-18); eGFR NON AFRICAN AMERICAN > 90 mL/min (90-120)
[2019-04-16 07:58] VITALS: BP 126/68
--- NOTE | 2019-04-16 08:17 | NUR ---
ALERT AND ORIENTED X4. CRYSTAL TRANSPORTS TO ND VIA WHEELCHAIR.
[2019-04-16 12:41] VITALS: BP 145/91
[2019-04-16 15:26] VITALS: Ht 160 cm; Wt 106.8 kg
--- NOTE | 2019-04-16 19:20 | NUR ---
REPORT RECEIVED. PT UP WALKING IN BERG. A&O X4 RR EVEN AND UNLABORED. NO S/S OF DISTRES NOTED. NO VOICED C/O OR CONCERNS. WILL CTM.
[2019-04-16 20:00] VITALS: BP 126/63
[2019-04-17] VITALS: BP 113/50
[2019-04-17 05:49] LABS: BASOPHILS 0.3 % (0-2); EOSINOPHILS 3.8 % (0-7); HEMATOCRIT 30.1 % (36.0-48.0); HEMOGLOBIN 9.8 g/dL (12-16); IMMATURE GRANULOCYTES 0.6 % (0-5); LYMPHOCYTES 17.4 % (15-50); MCH 28.8 pg (26.0-34.0); MCHC 32.6 g/dL (31.0-37.0); MCV 88.5 fL (80.0-100.0); MEAN PLATELET VOLUME 10.2 fL (7.4-10.4); MONOCYTES 10.7 % (2-11); NEUTROPHILS 67.2 % (40-80); PLATELET COUNT 412 10x3/uL (130-400); RDW 13.9 % (11.5-14.5); WBC 9.3 10x3/uL (4.8-10.8)
[2019-04-17 06:07] LABS: ALBUMIN 2.5 g/dL (3.4-5.0); ALKALINE PHOSPHATASE 193 U/L (46-116); BILIRUBIN - TOTAL 0.23 mg/dL (0.2-1.3); CALCIUM 8.9 mg/dL (8.5-10.1); CARBON DIOXIDE 28.8 mmol/L (21.0-32.0); CHLORIDE - SERUM 103 mmol/L (98-107); CREATININE - SERUM 0.7 mg/dL (0.6-1.3); GLUCOSE 89 mg/dL (74-106); POTASSIUM - SERUM 3.3 mmol/L (3.5-5.1); PROTEIN - SERUM 6.6 g/dL (6.4-8.2); SODIUM 139 mmol/L (136-145); eGFR NON AFRICAN AMERICAN > 90 mL/min (90-120)
[2019-04-17 06:08] LABS: ALT (SGPT) 31 U/L (10-68); CALC OSMOLALITY 274 mosm/kg (275-300); UREA NITROGEN 8 mg/dL (7-18)
--- NOTE | 2019-04-17 07:00 | NUR ---
RECIEVED REPORT. ALERT AND ORIENTED X4. SITTING UP IN BED. DENIES SOB OR PAIN. TOLERATED FOOD DURING NIGHT. DENIES ANY NEEDS AT THIS TIME. CONTINUE PLAN OF CARE AND SAFETY PRECAUTIONS.
[2019-04-17 08:27] VITALS: BP 159/80
[2019-04-17] MEDS ORDERED: LEVOFLOXACIN500 MG PO (12:33)
--- NOTE | 2019-04-17 13:45 | MORECARE ---
CASE MANAGEMENT DISCHARGE SUMMARY PATIENT: KETTY OROPEZA UNIT: [id number] ADM DATE: 04/15/19 AGE: 33 : 87 SEX: F ROOM/BED: D.6489 AUTHOR: DILLAN,DOC PHYSICIAN: REFERRING PHYSICIAN: RIOS LYNCH MD DATE OF SERVICE: 04/17/19 Discharge Plan Patient Name: KETTY OROPEZA Facility: [facility]:[place] : 1985 Planned Disposition: Home Anticipated Discharge Date: 04/17/19 Discharge Date: Expected LOS: 2 Initial Reviewer: [email or web address] Initial Review Date: 04/17/2019 Generated: 04/17/19 2:44 pm Comments DCP- Discharge Planning Updated by [email or web address]: Daniele Smith on 04/17/19 12:[address] Patient Name: KETTY OROPEZA Admission Status: ER Accout number: [id number] Admission Date: 04-15-2019 : 1985 Admission Diagnosis: Attending: RIOS LYNCH Current LOS: 2 Anticipated DC Date: 04-17-2019 Planned Disposition: Home Primary Insurance: MEDICAID [place] Discharge Planning Comments: CM RECEIVED DISCHARGE ORDER, MET WITH PT IN ROOM TO DISCUSS DISCHARGE PLANNING AND NEEDS. PT REPORTS LIVING AT HOME INDEPENDENTLY WITH HER MOTHER. PT HAS NO MEDICAL EQUIPMENT AND NO OUTSIDE SERVICES ASSISTING IN THE HOME. CM DISCUSSED AVAILABILITY OF HOME HEALTH, REHAB SERVICES AND MEDICAL EQUIPMENT. PT DENIES DISCHARGE NEEDS, REPORTS HER MOTHER WILL PICK HER UP FOR DISCHARGE HOME. ADDRESSING MACHINE OPERATOR NURSE NOTIFIED. In Flight Refueling Manager: Daniele Smith DCPIA - Discharge Planning Initial Assessment Updated by [email or web address]: Daniele Smith on 04/17/19 1:39 pm * Is the patient Alert and Oriented? Yes * How many steps to enter\exit or inside your home? RAMP * PCP DR. ROSSI * Pharmacy [facility] [address] * Preadmission Environment Home with Family * ADLs Independent * Equipment None * Other Equipment NO MEDICAL EQUIPMENT PROVIDER PREFERNECE * List name and contact numbers for known caregivers / representatives who currently or will assist patient after discharge: BRONWYN OROPEZA, * Verbal permission to speak to the caregivers and representatives has been obtained from the patient. Yes * Community resources currently utilized None * Please name any agencies selected above. NONE * Additional services required to return to the preadmission environment? No * Can the patient safely return to the preadmission environment? Yes * Has this patient been hospitalized within the prior 30 days at any hospital? Yes Patient Name: KETTY OROPEZA Page 81521 at 1345 All edits/amendments must be made on the electronic document DICTATION DATE: 04/17/191343 YARD TRUCK DRIVER: SUNG 04/17/19 134 RPT#: [id number] DC DATE: STATUS: ADM IN [facility] [address] [place] [address] END OF REPORT
--- NOTE | 2019-04-17 14:09 | NUR ---
ALERT AND ORIENTED X4. AMBULATING IN ROOM. DC LT AC IV TIP INTACT. DISCHARGE INSTRUCTIONS GIVEN VERBALLY AND WRITTEN. DISCHARGE PAPERS SIGNED ON CHART. ESCORT TO RIDE VIA WHEELCHAIR. REMAINS FREE FROM INJURY.
== END 2019-04-17 14:10 | disposition home or self-care (01) | DRG 690 ==
LOC: D.ER 10:00 → D.M2 11:57 → D.M3 11:57 → D.M2 17:08
PROVIDERS: Family Medicine; ADMIT Internal Medicine Nephrology; ATTEND Internal Medicine Nephrology
DX: N39.0 Urinary tract infection, site not specified (principal); E87.6 Hypokalemia; D64.9 Anemia, unspecified; K21.9 Gastro-esophageal reflux disease without esophagitis; Z72.0 Tobacco use

== ENCOUNTER 2020-12-03 16:29 | Emergency (ER) | payer MEDICAID ==
[~2020-12-03] VITALS: Ht 160 cm; Wt 118.2 kg
[2020-12-03 16:56] VITALS: Ht 160 cm; Wt 118.2 kg
[2020-12-03 17:37] LABS: BASOPHILS 0.4 % (0-2); EOSINOPHILS 1.2 % (0-7); HEMATOCRIT 37.6 % (36.0-48.0); HEMOGLOBIN 12.6 g/dL (12-16); LYMPHOCYTES 7.4 % (15-50); MCH 29.8 pg (26.0-34.0); MCHC 33.5 g/dL (31.0-37.0); MEAN PLATELET VOLUME 8.2 fL (7.4-10.4); MONOCYTES 4.8 % (2-11); NEUTROPHILS 86.2 % (40-80); PLATELET COUNT 313 10x3/uL (130-400); RBC 4.23 10x6/uL (4.00-5.40); RDW 13.2 % (11.5-14.5); WBC 12.6 10x3/uL (4.8-10.8)
[2020-12-03 17:38] LABS: BILIRUBIN NEGATIVE (NEGATIVE); KETONE NEGATIVE mg/dL (< 1+); NITRITE NEGATIVE (NEGATIVE); PH 5.5 (5.0-8.0); UROBILINOGEN NORMAL mg/dL (< 2)
[2020-12-03 17:50] LABS: CALC OSMOLALITY 280 mosm/kg (275-300); CALCIUM 8.7 mg/dL (8.5-10.1); CARBON DIOXIDE 25.4 mmol/L (21.0-32.0); CHLORIDE - SERUM 106 mmol/L (98-107); CREATININE - SERUM 0.7 mg/dL (0.6-1.3); GLUCOSE 98 mg/dL (74-106); SODIUM 140 mmol/L (136-145); UREA NITROGEN 17 mg/dL (7-18); eGFR NON AFRICAN AMERICAN > 90 mL/min (90-120)
[2020-12-03 17:52] LABS: ALBUMIN 3.6 g/dL (3.4-5.0); ALKALINE PHOSPHATASE 79 U/L (30-120); ALT (SGPT) 29 U/L (10-68); PROTEIN - SERUM 7.9 g/dL (6.4-8.2)
[2020-12-03 21:12] VITALS: BP 126/74
[2020-12-03] MEDS ORDERED: LOMOTIL 2.5-0.1 EAC1 PO (21:44)
[2020-12-03] MEDS ORDERED: ZOFRAN ODT4 MG/UDTAB PO (21:44)
== END 2020-12-03 22:14 | disposition home or self-care (01) ==
LOC: D.ER 16:29
PROVIDERS: Emergency Medicine
DX: L55.9 Sunburn, unspecified (principal); E86.0 Dehydration; R11.2 Nausea with vomiting, unspecified; R19.7 Diarrhea, unspecified; K21.9 Gastro-esophageal reflux disease without esophagitis